=== PATIENT | male | born 1980 | race Caucasian/White ===

== ENCOUNTER 2022-08-04 20:47 | Emergency (ER) | payer MEDICAID, SELFPAY ==
--- NOTE | 2022-08-04 20:46 | ECG_ITS ---
APPROVED REPORT Exam: Resting ECG HR:74 bpm ECG Measurements Heart Rate 74 AXES MN 185 P 45 QRSd 102 QRS 23 QT 379 T 40 QTc 406 Conclusion SINUS RHYTHM POSSIBLE RIGHT VENTRICULAR CONDUCTION DELAY [RSR (QR) IN V1/V2] BORDERLINE ECG UNCONFIRMED REPORT Electronically signed by : Santosh Qureshi MD 08/05/2022 16:44:44
[2022-08-04 20:47] VITALS: BP 151/97; PULSE 74; RESP 18; TEMP 36.7; O2SAT 99; BMI 25.0
--- NOTE | 2022-08-04 20:48 | XR_ITS ---
PROCEDURE INFORMATION: Exam: XR Chest Exam date and time: 08/04/2022 8:45 PM Age: 41 years old Clinical indication: Pain; Chest pressure; Additional info: Cp TECHNIQUE: Imaging protocol: Radiologic exam of the chest. Views: 2 views. COMPARISON: No relevant prior studies available. FINDINGS: Lungs: On lateral view, there is a band of opacity corresponding to either the lingula or right middle lobe, likely atelectasis. Lungs are otherwise clear. Pleural spaces: Unremarkable. No pleural effusion. No pneumothorax. Heart/Mediastinum: Unremarkable. No cardiomegaly. Bones/joints: Unremarkable. IMPRESSION: Minor basilar atelectasis, otherwise normal exam.
[2022-08-04 21:03] LABS: Basophils # 0.1 K/mm3 (0-0.2); Basophils % 1.5 % (0.1-2.0); Eosinophils # 0.6 K/mm3 (0.0-0.4); Eosinophils % 6.3 % (0.1-12.0); Hematocrit 45.2 % (42.0-52.0); Hemoglobin 14.9 g/dL (14.1-18.0); Lymphocytes # 2.3 K/mm3 (0.7-4.5); Lymphocytes % 26.7 % (10-50); Mean Corpuscular Hemoglobin 28.9 pg (27.0-31.2); Mean Corpuscular Volume 87.6 fl (80-94); Mean Platelet Volume 7.9 fl (7.4-10.4); Monocytes # 0.5 K/mm3 (0.1-1.0); Monocytes % 5.5 % (1.7-9.3); Neutrophils # 5.3 K/mm3 (1.8-7.8); Neutrophils % 59.9 % (37.0-80.0); Platelet Count 240 K/mm3 (142-424); Red Blood Count 5.16 M/mm3 (4.60-6.20); Red Cell Distribution Width 14.1 % (11.5-17.5); White Blood Count 8.8 K/mm3 (4.8-10.8)
[2022-08-04 21:06] LABS: Chloride 104 mmol/L (98-107); Sodium 140 mmol/L (136-145)
[2022-08-04 21:07] LABS: Potassium 3.8 mmoL/L (3.5-5.1)
[2022-08-04 21:10] LABS: Anion Gap 12.8 mEq/L (5-15); Blood Urea Nitrogen 16 mg/dl (9-20); Calcium 9.4 mg/dl (8.4-10.2); Carbon Dioxide 27 mmol/L (22.0-30.0); Creatinine Clearance Estimated 125 mL/min (50-200); Estimated Glomerular Filt Rate 82 ml/min (>60); GFR (African American) 100 ML/MIN (>60); Glucose 91 mg/dl (74-100)
[2022-08-04 21:25] LABS: Troponin I < 0.01 ng/ml (0.00-0.034)
--- NOTE | 2022-08-04 22:31 | CT_ITS ---
PROCEDURE INFORMATION: Exam: CTA Chest With Contrast Exam date and time: 08/04/2022 11:30 PM Age: 41 years old Clinical indication: Pain; Other: Tightness; Additional info: Cp TECHNIQUE: Imaging protocol: Computed tomographic angiography of the chest with contrast. 3D rendering (Not supervised by radiologist): MIP and/or 3D reconstructed images were created by the technologist. Radiation optimization: All CT scans at this facility use at least one of these dose optimization techniques: automated exposure control; mA and/or kV adjustment per patient size (includes targeted exams where dose is matched to clinical indication); or iterative reconstruction. Contrast material: ISOVUE; Contrast volume: 70 ml; Contrast route: INTRAVENOUS (IV); COMPARISON: CR XR CHEST 2V 08/04/2022 8:45 PM FINDINGS: Pulmonary arteries: Normal. No pulmonary emboli. Aorta: Unremarkable. No aortic aneurysm. No aortic dissection. Lungs: Paraseptal and centrilobular emphysema. Mild bronchial wall thickening and luminal narrowing. No airspace disease. Pleural spaces: Minor atelectasis noted adjacent to the left major fissure accounts for the density seen on lateral view of the plain film. Heart: Unremarkable. No cardiomegaly. No pericardial effusion. Lymph nodes: Unremarkable. No enlarged lymph nodes. Bones/joints: Unremarkable. No acute fracture. Soft tissues: Unremarkable. IMPRESSION: 1. No findings of acute pulmonary embolism. 2. Emphysema and changes of bronchitis. No airspace disease.
--- NOTE | 2022-08-04 22:49 | [facility].EDCP ---
Discharge Plan Disposition Patient Disposition: Home, Self-Care Prescriptions Prescriptions: New prednisone [prednisone] 20 mg tablet 20 mg PO BID Qty: 10 0RF levofloxacin 500 mg tablet 500 mg PO DAILY Qty: 7 0RF Referrals Follow up/Referrals: Provider,Referral, MD [Primary Care Provider] - See instructions Clinical Impressions Clinical Impression: Atypical chest pain, Acute pleurisy without pleural effusion Instructions Patient Instructions: DI for Atypical Chest Pain Discharge ED Provider: Ck Sawyer Chest Pain HPI General Chief Complaint: Chest Pain Stated Complaint: CP Time Seen by Provider: 08/04/22 22:50 Mode of Arrival: Ambulatory Source of Information: Patient and Medical Record Limitations: No Limitations Description of Symptoms (Recalled from ER Triage Doc. by RN): pt c/o chest tightness that started yesterday around 10. rating pain 10/10 and worsen when taking a deep breath. pt states had 3 broken ribs 3 weeks ago History of Present Illness HPI narrative: pt with chest tightness since yesterday worse with mov and insp - reports a few weeks ago had broken ribs complaint: chest pain Onset (ago): day(s) Duration: intermittent Activity at onset: during rest Pain location: left chest Severity: moderate Quality: sharp Exacerbating factors: inspiration Risk Factors for CAD: Family Hx of CAD and Smoking Treatments prior to or on arrival for Cardiac Chest Pain: none BONI Score for Non-Stemi Age of Patient: 40-49 years old Heart Rate: 70-89 bpm Systolic Blood Pressure: 140-159 mmHg Serum Creatinine: 0.80-1.19 mg/dl CHF [place] Class: I-No CHF Other Risk Factors: None Non-Stemi Risk Score: 65 Related Data Previous Rx's Medication Instructions Recorded levofloxacin 500 mg tablet 500 mg PO DAILY #7 tabs 08/05/22 prednisone 20 mg tablet 20 mg PO BID #10 tabs 08/05/22 Allergies Allergy/AdvReac Type Severity Reaction Status Date / Time No Known Allergies Allergy Verified 08/04/22 20:48 [facility] Disclaimer: The information contained in this section may have been updated after the patient was seen, as this information can be updated by other users. Social History Smoking Status: Current every day smoker alcohol intake: never current occupational status: employed Travel in the last 8 weeks: None ROS Obtained: Yes All systems reviewed & no additional complaints except as documented Physical Exam General General appearance: alert Head Head exam: normocephalic Eye Eye exam: Present PERRL and EOMI ENT ENT exam: Present mucous membranes moist Neck Neck exam: Present trachea midline Respiratory Respiratory exam: Present normal lung sounds bilaterally; Absent respiratory distress Cardiovascular Cardiovascular exam: Present regular rate; Absent systolic murmur, rubs or gallop Abdominal Exam Abdominal exam: Present soft; Absent tenderness Extremities Exam Extremities exam: Present full ROM Neurological Exam Neurological exam: Present alert, oriented X3 and CN II-XII intact; Absent motor sensory deficit Psychiatric Psychiatric exam: Present normal affect Skin Skin exam: Absent rash Medical Decision Making Medical Records Medical records reviewed: Yes I reviewed the patient's medical records. Rashad Inquiry Pt receiving controlled substance: No Vital Signs: 08/04/22 20:47 Temperature 98.1 F Temperature Source Oral Pulse Rate [Right] 74 Respiratory Rate 18 Blood Pressure [Right Arm] 151/97 H Blood Pressure Mean [Right Arm] 115 02 Sat by Pulse Oximetry 99 Lab Data Lab results reviewed: Yes I reviewed the patient's lab results. Lab Results 08/04/22 20:50: WBC 8.8, RBC 5.16, Hgb 14.9, Hct 45.2, MCV 87.6, MCH 28.9, MCHC 33.0, RDW 14.1, Plt Count 240, MPV 7.9, Neut % (Auto) 59.9, Lymph % (Auto) 26.7, [place] % (Auto) 5.5, Eos % (Auto) 6.3, Baso % (Auto) 1.5, Neut # (Auto) 5.3, Lymph # (Auto) 2.3, [place] # (Auto) 0.5, Eos # (Auto) 0.6 H, Baso # (Auto)
[2022-08-05 01:27] VITALS: BP 142/70; PULSE 73; PULSE 78; RESP 16; TEMP 36.7; O2SAT 98
== END 2022-08-05 01:42 | disposition home or self-care (01) ==
PROVIDERS: Emergency Provider Emergency Medicine
DX: R07.89 Other chest pain (principal); F17.200 Nicotine dependence, unspecified, uncomplicated; Z79.52 Long term (current) use of systemic steroids; Z79.899 Other long term (current) drug therapy; Z82.49 Family history of ischemic heart disease and other diseases of the circulatory system; Z81.2 Family history of tobacco abuse and dependence
CPT/HCPCS: 71046; 71275; 80048; 84484; 85025; 93005; 96374; 96375; 99285; Q9967

== ENCOUNTER 2023-01-09 19:13 | Emergency (ER) | payer MEDICAID, SELFPAY ==
[2023-01-09 19:14] VITALS: BP 174/100; PULSE 65; RESP 17; TEMP 36.8; O2SAT 98; BMI 27.5
--- NOTE | 2023-01-09 19:31 | [facility].EDGENADL ---
Discharge Plan Disposition Patient Disposition: Home, Self-Care Prescriptions Prescriptions: New amoxicillin 500 mg tablet 500 mg PO Q8H Qty: 30 0RF pseudoephedrine HCl [Sudafed] 30 mg tablet 30 mg PO Q6H Qty: 30 0RF Zyrtec 10 mg capsule 10 mg PO DAILY Qty: 30 0RF No Action prednisone [prednisone] 20 mg tablet 20 mg PO BID Qty: 10 0RF levofloxacin 500 mg tablet 500 mg PO DAILY Qty: 7 0RF Activity Restrictions/Add. Instructions Additional Instructions/Restrictions: Follow-up with your primary care physician within the next few days. Return the emergency department for worsening pain fever headache vomiting or any other concerns within 8 hours Clinical Impressions Clinical Impression: Otitis media Discharge ED Provider: Alejandro Smith General Adult HPI General Stated complaint: Can't hear out of R Ear Time Seen by Provider: 01/09/23 19:15 History of Present Illness HPI narrative: 42-year-old male presents with bilateral ear hearing loss. He says its been going on for a few days is worse on the right than the left feels full no congestion or fever. No vomiting or headache. No numbness weakness or tingling arms or legs. No chest pain or shortness of air. Family history of ear infections. Related Data Previous Rx's Medication Instructions Recorded levofloxacin 500 mg tablet 500 mg PO DAILY #7 tabs 08/05/22 prednisone 20 mg tablet 20 mg PO BID #10 tabs 08/05/22 amoxicillin 500 mg tablet 500 mg PO Q8H #30 tabs 01/09/23 cetirizine 10 mg capsule (Zyrtec) 10 mg PO DAILY #30 caps 01/09/23 pseudoephedrine HCl 30 mg tablet 30 mg PO Q6H #30 tabs 01/09/23 (Sudafed) Allergies Allergy/AdvReac Type Severity Reaction Status Date / Time meperidine [From Demerol] Allergy Verified 01/09/23 19:31 [facility] Disclaimer: The information contained in this section may have been updated after the patient was seen, as this information can be updated by other users. Social History (Updated 08/05/22 @ 01:24 by Ck Sawyer MD) Smoking Status: Current every day smoker alcohol intake: never current occupational status: employed Travel in the last 8 weeks: None ROS Obtained: Yes All systems reviewed & no additional complaints except as documented Constitutional Constitutional: Denies fatigue and Denies headache(s) Eyes Eyes: Denies dry eyes ENT Ears, Nose, Mouth, and Throat: Denies headache(s) Cardiovascular Cardiovascular: Denies dyspnea Respiratory Respiratory: Denies dyspnea Gastrointestinal Gastrointestingal: Denies coffee ground emesis Genitourinary Male Genitourinary: Denies flank pain Musculoskeletal Musculoskeletal: Denies joint stiffness Integumentary/Breasts Skin/Breast: Denies dry skin Neurologic Neurologic: Denies headache(s) Endocrine Endocrine: Denies fatigue Hematologic/Lymphatic Henatologic/Lymphatic: Denies easy bleeding Allergic/Immunologic Allergic/Immunologic: Denies urticaria Physical Exam General General appearance: alert and in no apparent distress Eye Eye exam: Present PERRL and EOMI ENT ENT exam: Present normal exam, normal oropharynx and other (Right tympanic membrane with fullness and erythema, left tympanic membrane with cerumen impaction) Neck Neck exam: Present normal inspection Chest Chest inspection: Present symmetric chest wall rise Respiratory Respiratory exam: Present normal lung sounds bilaterally; Absent respiratory distress Cardiovascular Cardiovascular exam: Present regular rate and normal rhythm Abdominal Exam Abdominal exam: Present soft; Absent distention, tenderness, guarding, rebound, Nevarez's sign or tenderness at McBurney's Point Rectal Exam Rectal exam: Present deferred Back Exam Back exam: Present normal inspection Neurological Exam Neurological exam: Present alert and oriented X3 Psychiatric Psychiatric exam: Present normal affect and normal mood Skin Skin exam: Present warm, dry and intact Lymphatic Lympha
[2023-01-09 19:38] VITALS: BP 160/95; PULSE 62; RESP 18; TEMP 36.7; O2SAT 98
== END 2023-01-09 19:44 | disposition home or self-care (01) ==
PROVIDERS: Emergency Provider Emergency Medicine
DX: H91.93 Unspecified hearing loss, bilateral (principal); H66.90 Otitis media, unspecified, unspecified ear; F17.200 Nicotine dependence, unspecified, uncomplicated
CPT/HCPCS: 99283; 99284